=== PATIENT | male | born 1990 | race Caucasian/White ===

== ENCOUNTER 2023-08-22 17:32 | Emergency (ER) | payer OTHER ==
[~2023-08-22] VITALS: Ht 167.6 cm; Wt 72.6 kg
[2023-08-22 17:54] VITALS: BP 132/76; PULSE 108; RESP 18; TEMP 97; O2SAT 98
[2023-08-22 18:00] VITALS: O2SAT 98
== END 2023-08-22 18:19 | disposition home or self-care (01) ==
LOC: MED 17:32
DX: Z02.89 Encounter for other administrative examinations (principal); V49.88XA Car occupant (driver) (passenger) injured in other specified transport accidents, initial encounter; Y93.89 Activity, other specified; Y92.89 Other specified places as the place of occurrence of the external cause; Y99.8 Other external cause status
CPT/HCPCS: 99283